=== PATIENT | female | born 1945 | race Caucasian/White ===

== ENCOUNTER → 2017-09-05 | Outpatient (REF) ==
[~2017-09-05] MED LIST: APRESOLINE 25MG25 MG PO; APRESOLINE50 MG PO; ASPIRIN 32325 MG/TAB PO; ASPIRIN E.C. 8181 MG PO; CALCIUM + D 6001 TAB PO; CALCIUM CARBONA1 TA2 PO; CALCIUM CITRATE1 TA1 PO; CLARITIN 1010 MG/TAB PO; COZAAR100 MG PO; ERGOCALCIFER50000 IU PO; FLONASE NASAL S16 GM NS; FOLIC ACID 40400 MCG PO; FOLIC ACID0.4 MG PO; HCTZ 25MG TAB25 MG PO; IMDUR 30MG30 MG/TAB PO; ISORDIL TITRADO30 MG PO; LIPITOR 10MG10 MG PO; LIPITOR 40MG TA40 MG PO; MULTIPLE VITAMI1 CAP PO; MULTIPLE VITAMI1 TAB PO; NITROSTAT0.4 MG/TAB SL; NORVASC 5MG5 MG/TAB PO; PLAVIX 75MG TAB75 MG PO; PREMARIN .3MG0.3 MG PO; PRIL40 PO; PRILOSEC 20MG20 MG PO; PRINIVIL10 MG PO; PROAIR HFA0.09 MG/AC IH; SINGULAIR 110 MG/TAB PO; TENORMIN 2525 MG/TAB PO; TENORMIN 5050 MG/TAB PO; VENTOLIN0.09 MG IH; VISION FORMULA1 TAB PO; VITAMIN C500 MG PO; VITAMIN D5000 IU PO; ZESTRIL 5MG5 MG PO; ZOFRAN 4MG T4 MG/TAB PO
== END ==
LOC: ZLAB.WCH 18:10
DX: Z01.89 Encounter for other specified special examinations (principal)

== ENCOUNTER 2017-10-17 09:52 | Day surgery (SDC) | payer MEDICARE ==
[~2017-10-17] VITALS: Ht 157.5 cm; Wt 80.9 kg
[2017-10-17 10:16] VITALS: BP 164/77; PULSE 87; TEMP 98.3
[2017-10-17] MEDS ORDERED: NATURE'S BLEND160 MG PO (10:25)
[2017-10-17] MEDS ORDERED: D3-5050000 IU PO (10:26)
[2017-10-17] MEDS ORDERED: K-DUR20 MEQ PO (10:27)
[2017-10-17] MEDS ORDERED: ASMANEX TW0.22 MG/A1 IH (10:27)
[2017-10-17] MEDS ORDERED: PROAIR HFA0.09 MG/AC IH (10:28)
[2017-10-17] MEDS ORDERED: FLONASEALLERGY NS (10:28)
[2017-10-17 11:40] VITALS: BP 146/110; PULSE 94; TEMP 98.2
[2017-10-17 11:45] VITALS: BP 131/73; PULSE 89
[2017-10-17 12:00] VITALS: BP 149/66; PULSE 84
[2017-10-17 12:15] VITALS: BP 139/66; PULSE 85
[2017-10-17 12:51] VITALS: BP 130/73; PULSE 87
== END 2017-10-17 12:35 ==
LOC: SDCO 09:52
DX: Z12.11 Encounter for screening for malignant neoplasm of colon (principal); K57.30 Diverticulosis of large intestine without perforation or abscess without bleeding; I10 Essential (primary) hypertension; E78.00 Pure hypercholesterolemia, unspecified; J45.909 Unspecified asthma, uncomplicated; Z90.710 Acquired absence of both cervix and uterus; Z79.82 Long term (current) use of aspirin; Z88.0 Allergy status to penicillin; Z88.1 Allergy status to other antibiotic agents; Z88.2 Allergy status to sulfonamides; Z88.5 Allergy status to narcotic agent; Z86.010 Personal history of colon polyps
CPT/HCPCS: OP; J2250; J3010; J7030

== ENCOUNTER 2017-11-21 13:13 | Day surgery (SDC) | payer MEDICARE ==
[~2017-11-21] VITALS: Ht 157.5 cm; Wt 82.1 kg
[2017-11-21] VITALS (9 sets, daily range): BP systolic 135–151; BP diastolic 64–79; PULSE 76–99; TEMP 97.6–98.6
[~2017-11-21 13:13] MED LIST changes: +ASMANEX TW0.22 MG/A1 IH; +D3-5050000 IU PO; +FLONASEALLERGY NS; +K-DUR20 MEQ PO; +NATURE'S BLEND160 MG PO
[2017-11-21] MEDS ORDERED: TOPROL XL 25MG25 MG PO (13:41)
== END 2017-11-21 23:45 | disposition home or self-care (01) ==
LOC: SDCO 13:13 → SURG 19:10 → SDCO 23:45
DX: K02.9 Dental caries, unspecified (principal); M27.0 Developmental disorders of jaws; E78.5 Hyperlipidemia, unspecified; I25.10 Atherosclerotic heart disease of native coronary artery without angina pectoris; I10 Essential (primary) hypertension; I83.813 Varicose veins of bilateral lower extremities with pain; I27.20 Pulmonary hypertension, unspecified; I51.9 Heart disease, unspecified; G47.33 Obstructive sleep apnea (adult) (pediatric); I25.2 Old myocardial infarction; J45.909 Unspecified asthma, uncomplicated; M19.049 Primary osteoarthritis, unspecified hand; Z79.82 Long term (current) use of aspirin; Z88.6 Allergy status to analgesic agent; Z88.8 Allergy status to other drugs, medicaments and biological substances; Z88.0 Allergy status to penicillin; Z90.710 Acquired absence of both cervix and uterus
CPT/HCPCS: OP; J1100; J2405; J2704; J3010; J7120

== ENCOUNTER → 2019-04-21 | Outpatient (CLI) | payer MEDICARE ==
[~2019-04-21] MED LIST changes: +TOPROL XL 25MG25 MG PO
== END ==
LOC: MC.RAD 13:34
DX: Z12.31 Encounter for screening mammogram for malignant neoplasm of breast (principal)

== ENCOUNTER → 2019-06-04 | Outpatient (CLI) | payer MEDICARE ==
[~2019-06-04] MED LIST changes: +ACTIFED PO; +RT SPIRIVA18 MCG IH; +SPIRIVA RE2.5 MCG/Ac IH
== END ==
LOC: COL.VAS 12:02
DX: Z13.6 Encounter for screening for cardiovascular disorders (principal); I82.612 Acute embolism and thrombosis of superficial veins of left upper extremity

== ENCOUNTER 2021-03-02 11:33 | Outpatient (CLI) | payer MEDICARE ==
[2021-03-02] VITALS (7 sets, daily range): BP systolic 121–137; BP diastolic 58–81; PULSE 74–86; TEMP 97.9
[2021-03-02] MEDS ORDERED: DECADRON6 MG PO (11:41)
[2021-03-02] MEDS ORDERED: DORYX100 PO (11:41)
[2021-03-02] MEDS ORDERED: RT SPIRIVA18 MCG IH (11:44)
== END 2021-03-02 13:42 | disposition home or self-care (01) ==
LOC: EUO 11:33
DX: U07.1 COVID-19 (principal)
CPT/HCPCS: Q0244

== ENCOUNTER → 2022-03-19 | Outpatient (CLI) | payer MEDICARE ==
[~2022-03-19] MED LIST changes: +DECADRON6 MG PO; +DORYX100 PO
== END ==
LOC: MC.RAD 10:58
DX: Z12.31 Encounter for screening mammogram for malignant neoplasm of breast (principal)

== ENCOUNTER 2022-12-06 05:47 | Day surgery (SDC) | payer MEDICARE ==
[~2022-12-06] VITALS: Ht 157.5 cm; Wt 80.0 kg
[2022-12-06] MEDS ORDERED: ERGOCALCIFER50000 IU PO (06:26)
[2022-12-06] MEDS ORDERED: TOPROL XL 50MG50 MG PO (06:28)
[2022-12-06] MEDS ORDERED: NITROSTAT0.4 MG/TAB SL (06:29)
[2022-12-06] MEDS ORDERED: ALDACTONE 25MG25 M1 PO (06:30)
[2022-12-06] MEDS ORDERED: AMARYL 2MG T2 MG/TAB PO (06:30)
[2022-12-06] MEDS ORDERED: RT ADVAIR 228 DISKUS IH (06:32)
[2022-12-06 07:34] VITALS: BP 124/61; PULSE 93; TEMP 98.3
[2022-12-06 08:30] VITALS: BP 115/66; PULSE 92; TEMP 98.3
[2022-12-06 08:45] VITALS: BP 116/69; PULSE 94
[2022-12-06 08:55] VITALS: BP 123/63; PULSE 92
--- NOTE | 2022-12-06 09:05 | NUR ---
0830 RETURNS TO ROOM 3 PER CART. AWAKE, ALERT. RESP UNLABORED. AMBULATES TO RECLINER WITH STANDBY ASSIST. DENIES NAUSEA, ABD PAIN OR DYSPHAGIA. VITAL SIGNS OBTAINED. CALL LIGHT AT SIDE. HERE 0840 TOLERATES PO JUICE AND MUFFIN WITHOUT NAUSEA. SWALLOWS WITHOUT DIFFICULTY. DISCHARGE INSTRUCTIONS REVIEWED. PATIENT VERBALIZES UNDERSTANDING. COPY PROVIDED IN DISCHARGE FOLDER [id number] DR. HACKETT HERE TO VISIT WITH PATIENT 0858 DRESSES SELF
== END 2022-12-06 09:05 | disposition home or self-care (01) ==
LOC: SDCO 05:47
DX: Z12.11 Encounter for screening for malignant neoplasm of colon (principal); D12.3 Benign neoplasm of transverse colon; K21.00 Gastro-esophageal reflux disease with esophagitis, without bleeding; K22.2 Esophageal obstruction; G47.33 Obstructive sleep apnea (adult) (pediatric); D50.9 Iron deficiency anemia, unspecified; Z85.038 Personal history of other malignant neoplasm of large intestine; Z99.81 Dependence on supplemental oxygen
CPT/HCPCS: C1726; J2704; J7120

== ENCOUNTER → 2023-10-01 | Outpatient (CLI) | payer MEDICARE ==
[~2023-10-01] MED LIST changes: +ALDACTONE 25MG25 M1 PO; +AMARYL 2MG T2 MG/TAB PO; +NS IV SCH; +RT ADVAIR 228 DISKUS IH; +SINCALIDE IV SCH; +TOPROL XL 50MG50 MG PO
== END ==
LOC: COL.RAD 09:27
DX: R10.11 Right upper quadrant pain (principal)
CPT/HCPCS: A9537-JZ; J2805

== ENCOUNTER 2023-11-12 08:36 | Day surgery (SDC) | payer MEDICARE ==
[2023-11-12] VITALS (10 sets, daily range): BP systolic 116–134; BP diastolic 44–93; PULSE 60–76; TEMP 97–98.3
[~2023-11-12] VITALS: Ht 157.5 cm; Wt 80.0 kg
[~2023-11-12 08:36] MED LIST changes: +HYDROmorphone 1 MG/1 ML SYRINGE [PACU/SDC ONLY] IV PRN; +LR 1,000 ML IV SCH; -NS IV SCH; +Ondansetron 4 MG/2 ML VIAL IV PRN; -SINCALIDE IV SCH; +droPERidol 2.5 MG/ML 2 ML VIAL IV PRN; +fentaNYL 50 MCG/ML 1 ML SYRINGE/VIAL [PACU/SDC ONLY] IV PRN; +hydrALAZINE 20 MG/ML 1 ML VIAL IV PRN
[2023-11-12] MEDS ORDERED: fentaNYL 50 MCG/ML 5 ML VIAL ONE (09:11)
[2023-11-12] MEDS ORDERED: Rocuronium 50 MG/5 ML Multi-Dose VIAL ONE (09:12)
[2023-11-12] MEDS ORDERED: Ondansetron 4 MG/2 ML VIAL ONE (09:13)
[2023-11-12] MEDS ORDERED: NS 10 ML IV ONE (09:13)
[2023-11-12] MEDS ORDERED: dexAMETHasone 10 MG/ML VIAL ONE (09:13)
[2023-11-12] MEDS ORDERED: Lidocaine PF 2% (20 MG/ML) 5 ML VIAL ONE (09:13)
[2023-11-12] MEDS ORDERED: Glycopyrrolate 0.2 MG/ML 1 ML VIAL ONE (09:13)
[2023-11-12] MEDS ORDERED: Indocyanine Green 12.5 MG in Water For Injection,Sterile 2.5 ML IV SCH (09:30)
[2023-11-12] MEDS ORDERED: Topical Skin Adhesive 1 EACH (1 ML) TOP ONE (10:10)
[2023-11-12] MEDS ORDERED: ULTRAM 50MG TAB50 MG PO (10:56)
[2023-11-12] MEDS ORDERED: Acetaminophen 325 MG TAB PO PRN (11:00)
[2023-11-12] MEDS ORDERED: traMADol 50 MG TAB PO PRN (11:00)
[2023-11-12] MEDS ORDERED: Ondansetron 4 MG/2 ML VIAL IV PRN (11:00)
--- NOTE | 2023-11-12 15:00 | NUR ---
1135-PT TO BAY 2 PER CART FROM PACU. REPORT RECEIVED. VS OBTAINED. CALL LIGHT WITHIN REACH. PT DENIES ANY NEEDS AT THIS TIME. PT RESTING. 1150-PT CONTINUES TO DENY ANY NEEDS. PT IS RESTING. 1215-PT CONTINUES TO REST. TOLERATING ICE CHIPS. 1235-PT CONTINUES TO REST. 1250-PT DENIES ANY NEEDS. PT TOLERATING ICE CHIPS. 1310-PT TOLERATING SODA, CRACKERS AND PEANUT BUTTER. 1330-PT RATES PAIN AT 4/10. ACETAMINOPHEN 650 MG GIVEN AT THIS TIME. 1345-PT RESTING. 1405-PT UP TO RESTROOM AND VOIDED WITHOUT DIFFICULTY. 1420-IV DC'D AT THIS TIME. PT ABLE TO DRESS SELF WITH ASSISTANCE OF HER . 1445-DISCHARGE EDUCATION COMPLETED WITH PT AND HER . VERBALIZED UNDERSTANDING OF HOME AND FOLLOW UP CARE. ALL QUESTIONS ANSWERED. DISCHARGE PAPERWORK GIVEN TO PT'S . 1500-PT OFF UNIT PER WHEELCHAIR. PT DISCHARGED TO HOME WITH HER PER PERSONAL VEHICLE.
== END 2023-11-12 15:00 | disposition home or self-care (01) ==
LOC: SDCO 08:36
DX: K80.10 Calculus of gallbladder with chronic cholecystitis without obstruction (principal); I25.10 Atherosclerotic heart disease of native coronary artery without angina pectoris; I12.9 Hypertensive chronic kidney disease with stage 1 through stage 4 chronic kidney disease, or unspecified chronic kidney disease; N18.30 Chronic kidney disease, stage 3 unspecified; I25.2 Old myocardial infarction; E11.22 Type 2 diabetes mellitus with diabetic chronic kidney disease; E66.9 Obesity, unspecified; K21.9 Gastro-esophageal reflux disease without esophagitis; G47.33 Obstructive sleep apnea (adult) (pediatric); Z68.31 Body mass index [BMI] 31.0-31.9, adult; Z95.5 Presence of coronary angioplasty implant and graft; Z79.84 Long term (current) use of oral hypoglycemic drugs
CPT/HCPCS: J0690; J1100; J2405; J2704; J3010; J7120

== ENCOUNTER → 2024-04-28 | Outpatient (CLI) | payer MEDICARE ==
[~2024-04-28] MED LIST changes: -HYDROmorphone 1 MG/1 ML SYRINGE [PACU/SDC ONLY] IV PRN; -LR 1,000 ML IV SCH; -Ondansetron 4 MG/2 ML VIAL IV PRN; +ULTRAM 50MG TAB50 MG PO; -droPERidol 2.5 MG/ML 2 ML VIAL IV PRN; -fentaNYL 50 MCG/ML 1 ML SYRINGE/VIAL [PACU/SDC ONLY] IV PRN; -hydrALAZINE 20 MG/ML 1 ML VIAL IV PRN
[2024-05-04] VITALS (78 sets, daily range): O2SAT 86–95
== END ==
LOC: MC.RAD 14:00
DX: Z12.31 Encounter for screening mammogram for malignant neoplasm of breast (principal)

== ENCOUNTER 2024-05-02 15:23 | Inpatient (IN) | payer MEDICARE ==
[~2024-05-02] VITALS: Ht 157.5 cm; Wt 85.7 kg
[2024-05-02] MEDS ORDERED: NS 1,000 ML IV ONE ×2 (16:00→18:45)
[2024-05-02 16:19] LABS: BASO % 0.3 % (0.0-2.0); EOS # 0.1 K/mm3 (0.0-0.7); EOS % 0.4 % (0.0-4.0); GRAN # 10.7 K/mm3 (1.4-6.5); GRAN % 70.7 % (42.2-75.2); LYMPH # 2.8 K/mm3 (1.2-3.4); LYMPH % 18.6 % (20.0-51.0); MEAN CELL VOLUME 95 fl (80.0-100.0); MEAN CORPUSCULAR HEMOGLOBIN 34 pg (27-31); MEAN CORPUSCULAR HGB CONC 35 g/dl (33.0-37.0); MEAN PLATELET VOLUME 10.8 fl (7.4-10.4); MONO # 1.5 K/mm3 (0.1-0.6); MONO % 9.6 % (1.7-9.3); PLATELET COUNT 257 K/mm3 (130-400); RED BLOOD COUNT 3.87 M/mm3 (4.10-5.30); REDCELL DISTRIBUTION WIDTH-CV 12.3 % (11.5-14.5)
[2024-05-02 16:21] LABS: HEMATOCRIT 36.9 % (37.0-47.0)
[2024-05-02 16:30] LABS: BILIRUBIN,TOTAL 0.8 mg/dL (0.2-1.2); C-REACTIVE PROTEIN 2.76 mg/dL (0.00-0.50); CREATININE, serum 0.98 mg/dL (0.57-1.11); POTASSIUM 4.1 mEq/L (3.5-4.5); TOTAL PROTEIN 7.1 g/dl (6.2-8.1)
[2024-05-02] MEDS ORDERED: Iohexol 300 - 100 ML VIAL IV ONE (16:41)
[2024-05-02] MEDS ORDERED: NS 100 ML IV SCH (16:42)
[2024-05-02 16:59] LABS: COLLECTION METHOD CLEAN CATCH
[2024-05-02 17:08] LABS: PH 6.5 (5.0-8.5); URINE APPEARANCE CLEAR (CLEAR/HAZY); URINE BLOOD NEGATIVE (NEGATIVE); URINE COLOR YELLOW (YELLOW); URINE GLUCOSE NEGATIVE (NEGATIVE); URINE KETONE NEGATIVE (NEGATIVE); URINE NITRATE NEGATIVE (NEGATIVE); URINE PROTEIN(semi-quant) NEGATIVE (NEGATIVE); URINE UROBILINOGEN 0.2 E.U/dL (0.2-1.0)
[2024-05-02] MEDS ORDERED: metroNIDAZOLE 100 ML IV ONE (18:45)
[2024-05-02] MEDS ORDERED: Acetaminophen 500 MG TAB PO ONE (22:15)
[2024-05-02] MEDS ORDERED: Acetaminophen 325 MG TAB PO PRN (23:30)
[2024-05-02] MEDS ORDERED: Ondansetron 4 MG/2 ML VIAL IV PRN (23:30)
[2024-05-02] MEDS ORDERED: LR 1,000 ML IV SCH (23:30)
[2024-05-02 23:36] VITALS: BP 85/37; PULSE 102
[2024-05-02] MEDS ORDERED: Glucagon 1 MG VIAL IM PRN (23:45)
[2024-05-02] MEDS ORDERED: Dextrose (Glucose) 15 GM (4 x 3.75 GM) Chewable TABLET PACK PO PRN (23:45)
[2024-05-02] MEDS ORDERED: Dextrose 50% Water 25 GM/50 ML SYRINGE IV PRN (23:45)
[2024-05-03] VITALS (786 sets, daily range): BP systolic 97–123; BP diastolic 50–64; PULSE 76–94; TEMP 98.6–100.1; O2SAT 79–100
[2024-05-03] MEDS ORDERED: Albuterol 0.083% Neb Soln 2.5 MG/3 ML UD IH PRN (00:15)
--- NOTE | 2024-05-03 00:28 | NUR ---
PATIENT BROUGHT OVER TO UNIT BY SHRUTHI ROSS. PATIENT THEN ORIENTED TO MYSELF, HER ROOM, AND THE UNIT. PATIENT WAS ALERT AND ORIENTED X4. PATIENT'S VITAL SIGNS WNL. PATIENT HAS A 20G TO THE LEFT AC WITH LEVOPHED RUNNING AT 0.01 MCG/KG/MIN. PATIENT ASKED TO USE THE BATHROOM PRIOR TO GETTING INTO BED. PATIENT VOIDED 250 MLS. PATIENT HELPED INTO BED AND ADMISSION ASSESSMENTS WERE FINALIZED. PATIENT STATED HOW TIRED SHE WAS. PATIENT CAUGHT UP ON PLAN OF CARE AND CURRENT DUE MEDICATIONS. BED IN LOW POSITION, CALL LIGHT WITHIN THE PATIENT'S REACH, AND WHEELS LOCKED.
[2024-05-03 05:23] LABS: C-REACTIVE PROTEIN 13.31 mg/dL (0.00-0.50); CALCIUM 8.4 mg/dL (8.4-10.2); CREATININE, serum 1.03 mg/dL (0.57-1.11); POTASSIUM 3.6 mEq/L (3.5-4.5)
--- NOTE | 2024-05-03 07:00 | NUR ---
REPORT RECEIVED FROM SHRUTHI JAMISON. PT RESTING IN BED, VSS ON ROOM AIR. LEVO INFUSING ORDERED TO PERIPHERAL IV TO L AC. PT IS ALERT AND ORIENTED AND USES CALL LIGHT FOR NEEDS.
[2024-05-03 07:26] LABS: HEMOGLOBIN 11.4 g/dl (12.5-16.0); MEAN CELL VOLUME 94 fl (80.0-100.0); MEAN CORPUSCULAR HEMOGLOBIN 33 pg (27-31); MEAN CORPUSCULAR HGB CONC 35 g/dl (33.0-37.0); MEAN PLATELET VOLUME 10.6 fl (7.4-10.4); PLATELET COUNT 221 K/mm3 (130-400); RED BLOOD COUNT 3.44 M/mm3 (4.10-5.30)
[2024-05-03 07:29] LABS: HEMATOCRIT 32.2 % (37.0-47.0)
[2024-05-03 07:57] LABS: BAND 4 % (0-10); LYMPHOCYTE 21 % (20.0-51.0)
[2024-05-03 07:58] LABS: PLATELET ESTIMATE NORMAL (NORMAL)
[2024-05-03 08:00] LABS: NEUTROPHILS 62 % (42.0-75.2)
[2024-05-03] MEDS ORDERED: Insulin Lispro (HumaLOG) SQ SCH (08:00)
[2024-05-03] MEDS ORDERED: metroNIDAZOLE 100 ML IV SCH (08:30)
[2024-05-03] MEDS ORDERED: Montelukast 10 MG TAB PO SCH (09:00)
[2024-05-03] MEDS ORDERED: Potassium Chloride 100 ML IV SCH (09:30)
[2024-05-03] MEDS ORDERED: *Potassium Replacement Protocol MC SCH (09:30)
[2024-05-03] MEDS ORDERED: LR 1,000 ML IV SCH (09:30)
--- NOTE | 2024-05-03 10:11 | NUR ---
Initial visit; Windy thanked for looking in on her and spoke of her health issues, specifically being severly dehydrated. She spoke of her age and being tired and thinks having company for a week and being on-the-go all the time just wore her out and caused her to to forget to drink enough. She is awaiting results from several test as well. wished her God's blessings.
--- NOTE | 2024-05-03 10:48 | NUR ---
restuarant crew worker met with pt to discuss discharge planning. She reports to live with her , Gerardo [phone] in [place]. She sees Dr. Woo for PCP needs and obtains medications from [facility] with some difficulties. Pt reports to have Medicare A/B and [employer] insurance. Pt reports some of her inhalers are expensive and she cannot afford them all. SW provided [employer] card and informed her to utilize this at her pharmacy. She verbalized understanding. Pt is independent with [facility] and uses a CPAP for DME. She does not have a DPOA-HC and is agreeable to her being [facility]. Pt does not have any Home Health services, but would be open to this if PT/OT reccomendation. PT/OT Pending Discharge Plan: tbd, home likely
[2024-05-03] MEDS ORDERED: Vancomycin 1.5 GM,Special Dose/Pharmacy Prepared 1.5 GM in NS 250 ML IV SCH (11:00)
--- NOTE | 2024-05-03 13:53 | NUR ---
Vancomycin Initial Dosing Pharmacy Note Ordering provider: Fam Wharton MD Indication/duration: sepsis, 7 days LABS: SCr 1.03, CrCl~40, GFR 56 Recommendation: Will start Vancomycin 1.5 gm IV q24h. Pharmacy will continue to closely montior and check a trough on 05/06/24. Maintenance dose: 1.5 grams every 24 hours Trough goal: 15-20 ug/mL
--- NOTE | 2024-05-03 19:30 | NUR ---
Received report from SHRUTHI Doan. Patient resting quietly in bed watching TV. Denies pain or discomfort. Vitals within normal limits. She remains on room air at this time, tolerating well. IVF infusing according to orders in EMAR; no other drips or medications infusing at this time.
[2024-05-03] MEDS ORDERED: Atorvastatin 80 MG TAB PO SCH (21:00)
[2024-05-03] MEDS ORDERED: Loratadine 10 MG TAB PO SCH (21:00)
[2024-05-04] VITALS (839 sets, daily range): BP systolic 100–135; BP diastolic 54–80; PULSE 78–98; TEMP 97.9–100; O2SAT 69–100
[2024-05-04 05:23] LABS: BASO % 0.2 % (0.0-2.0); EOS # 0.1 K/mm3 (0.0-0.7); GRAN # 7.1 K/mm3 (1.4-6.5); GRAN % 67.3 % (42.2-75.2); LYMPH # 2.2 K/mm3 (1.2-3.4); LYMPH % 20.8 % (20.0-51.0); MEAN CELL VOLUME 95 fl (80.0-100.0); MEAN CORPUSCULAR HGB CONC 35 g/dl (33.0-37.0); MEAN PLATELET VOLUME 10.9 fl (7.4-10.4); MONO # 1.1 K/mm3 (0.1-0.6); PLATELET COUNT 149 K/mm3 (130-400); RED BLOOD COUNT 2.59 M/mm3 (4.10-5.30); REDCELL DISTRIBUTION WIDTH-CV 12.5 % (11.5-14.5)
[2024-05-04 05:25] LABS: HEMATOCRIT 24.7 % (37.0-47.0); HEMOGLOBIN 8.6 g/dl (12.5-16.0); MEAN CORPUSCULAR HEMOGLOBIN 33 pg (27-31)
[2024-05-04 05:45] LABS: CALCIUM 7.6 mg/dL (8.4-10.2); CREATININE, serum 0.76 mg/dL (0.57-1.11); POTASSIUM 3.4 mEq/L (3.5-4.5)
[2024-05-04] MEDS ORDERED: Potassium Chloride 100 ML IV SCH (06:00)
--- NOTE | 2024-05-04 07:00 | NUR ---
Report received from SHRUTHI Ayers. Reviewed overnight events. Pt resting with home CPAP on. LR infusing at 125ml/hr. Call light within reach. Will conitnue with POC.
[2024-05-04] MEDS ORDERED: Potassium Bicarbonate/Citrate 20 MEQ Effervescent TAB PO SCH (08:00)
[2024-05-04] MEDS ORDERED: Cholestyramine/Aspartame (Sugar Free) 4 GM PACK PO SCH (12:00)
[2024-05-04] MEDS ORDERED: Ciprofloxacin 0.3% Ophth Soln 5 ML BOTTLE OT SCH (12:30)
--- NOTE | 2024-05-04 14:08 | NUR ---
SW met with pt to provide Medicare.gov list of HH agencies per PT/OT notes. Pt is agreeable to this and will review the list of agencies. Discharge Plan: home with HH
--- NOTE | 2024-05-04 20:08 | NUR ---
Received report from SHRUTHI Dukes. Patient resting quietly in bed. Denies pain or discomfort. Vitals within normal limits. She continues to receive 2L oxygen via nasal cannula, tolerating well. IVF infusing according to orders in EMAR.
[2024-05-05] VITALS (91 sets, daily range): BP systolic 117–133; BP diastolic 50–87; PULSE 75–92; TEMP 99.1–100.3; O2SAT 79–99
[2024-05-05 06:02] LABS: BASO % 0.2 % (0.0-2.0); EOS # 0.2 K/mm3 (0.0-0.7); EOS % 1.9 % (0.0-4.0); GRAN # 5.4 K/mm3 (1.4-6.5); GRAN % 65.1 % (42.2-75.2); LYMPH % 23.5 % (20.0-51.0); MEAN CELL VOLUME 99 fl (80.0-100.0); MEAN CORPUSCULAR HGB CONC 34 g/dl (33.0-37.0); MEAN PLATELET VOLUME 11.1 fl (7.4-10.4); MONO # 0.7 K/mm3 (0.1-0.6); MONO % 8.9 % (1.7-9.3); PLATELET COUNT 187 K/mm3 (130-400); RED BLOOD COUNT 2.74 M/mm3 (4.10-5.30); REDCELL DISTRIBUTION WIDTH-CV 12.7 % (11.5-14.5)
[2024-05-05 06:04] LABS: HEMOGLOBIN 9.1 g/dl (12.5-16.0); MEAN CORPUSCULAR HEMOGLOBIN 33 pg (27-31)
[2024-05-05 06:06] LABS: CALCIUM 8.2 mg/dL (8.4-10.2); CREATININE, serum 0.81 mg/dL (0.57-1.11); POTASSIUM 3.9 mEq/L (3.5-4.5)
--- NOTE | 2024-05-05 07:29 | NUR ---
Report received from SHRUTHI Ayers. Pt had a tmax temp of 100.3 overnight. Labs reviewed. IVF infusing per orders. Pt resting with CPAP on. Denies needs at this time. Call light within reach. Will continue with POC.
--- NOTE | 2024-05-05 09:03 | NUR ---
Pt up to chair and commplains of some SOB. O2 sats are 87% on room air. Placed on 1L O2. O2 sats increased to 93%.
[2024-05-05] MEDS ORDERED: DIFLUCAN150 MG PO (10:38)
[2024-05-05] MEDS ORDERED: LEVAQUIN 750MG750 M1 PO (10:42)
[2024-05-05] MEDS ORDERED: AMOXICILLIN 8751 TAB PO (10:45)
[2024-05-05] MEDS ORDERED: Amoxicillin/Clavulanate K+ 875/125 MG TAB PO ONE (11:00)
--- NOTE | 2024-05-05 11:08 | NUR ---
grease rack worker attended clinical rounding and was informed pt can discharge today. SW met with pt to follow-up on HH option. Pt chose [facility] as she is familiar with them as a shelter. SW completed IM from Medicare. Pt signed and verbalized understanding. Copy provided and original in chart. [facility]. Discharge Plan: home with [facility]
--- NOTE | 2024-05-05 13:31 | NUR ---
Discharge instructions provided. Educaton about new meds and follow up appoinments reviewed. Pt verbalized unerstanding. Midline discontinued and pt had flat time. Education about post midline removal reviewed. Pt verbalized understanding. Pt escorted out via wheelchair at 1322.
== END 2024-05-05 13:22 | disposition home health service (06) | DRG 871 ==
LOC: COL.ER 15:23 → ICU 23:38
PROVIDERS: Emergency Medicine; Internal Medicine; Physician Assistant; ADMIT Internal Medicine
PROC: 02HV33Z Insertion of Infusion Device into Superior Vena Cava, Percutaneous Approach (ICD-10-PCS; principal; 2024-05-03)
DX: A41.9 Sepsis, unspecified organism (principal); R65.21 Severe sepsis with septic shock; E11.9 Type 2 diabetes mellitus without complications; E78.00 Pure hypercholesterolemia, unspecified; E87.6 Hypokalemia; I25.10 Atherosclerotic heart disease of native coronary artery without angina pectoris; E78.5 Hyperlipidemia, unspecified; Z87.19 Personal history of other diseases of the digestive system; Z88.2 Allergy status to sulfonamides; Z90.49 Acquired absence of other specified parts of digestive tract; Z88.8 Allergy status to other drugs, medicaments and biological substances; Z88.5 Allergy status to narcotic agent; Z95.5 Presence of coronary angioplasty implant and graft; Z88.0 Allergy status to penicillin
CPT/HCPCS: C1751; J0744; J1650; J1815; J1836; J2405; J2543; J3370; J3480; J7030; J7050; J7060; J7120; Q9967